=== PATIENT | male | born 1980 | race African-American/Black ===

== ENCOUNTER 2016-06-15 09:49 | Emergency (ER) | payer SELFPAY ==
[~2016-06-15] VITALS: Ht 180.3 cm; Wt 123.9 kg
[~2016-06-15 09:49] MED LIST: ATARAX,VISTARIL50 MG PO; NOHOMEMEDS; PATANOL OP100 DROP/5 BOTH EYES; PEPCID20 MG PO; PREDNISONE20 MG PO
[2016-06-15 11:02] LABS: EOSINOPHIL (%) 0 % (0-5); HEMATOCRIT 45.4 % (38.0-50.0); IMMATURE GRANULOCYTE (%) 0.2 % (0.0-0.7); IMMATURE GRANULOCYTE COUNT 0.3 K/uL; LYMPHOCYTE COUNT 2.5 K/uL (1.0-2.8); MCH 26.9 PG (29.0-34.0); MCHC 34.1 G/DL (30.0-36.0); MCV 78.8 FL (86-99); MEAN PLAT.VOLUME 10.6 uM^3 (9.0-12.4); MONOCYTE (%) 10.8 % (3-12); MONOCYTE COUNT 1.5 K/uL (0-0.8); NEUTROPHIL (%) 71.2 % (45-76); NEUTROPHIL COUNT 9.9 K/uL (1.8-6.4); PLATELET COUNT 258 K/uL (156-360); RBC DIS.WIDTH-CV 14.3 % (11.8-14.6); RBC DIS.WIDTH-SD 40.7 % (39-53); RED BLOOD COUNT 5.76 M/uL (4.00-5.50); WHITE BLOOD COUNT 13.9 K/uL (4.1-10.2)
[2016-06-15 11:12] LABS: CHLORIDE 105 mEq/L (99-109); SODIUM 139 mEq/L (136-147)
[2016-06-15 11:13] LABS: GLUCOSE 67 mg/dL (70-99)
[2016-06-15 11:15] LABS: ANION GAP 13 MEQ/L (2-14)
[2016-06-15 11:17] LABS: GFR ESTIMATE (CALCULATED) > 59 mL/min/
[2016-06-15 11:18] LABS: UREA NITROGEN (BUN) 13 mg/dL (9-23)
[2016-06-15] MEDS ORDERED: PERCOCET 5/31 TABLET PO (13:08)
[2016-06-15] MEDS ORDERED: CLINDAMYCIN HC300 MG PO (13:08)
[2016-06-15 13:26] VITALS: BP 132/85
== END 2016-06-15 13:27 | disposition home or self-care (01) ==
LOC: EME 09:49
PROVIDERS: Physician Assistant
PROC: 0H98X0Z Drainage of Buttock Skin with Drainage Device, External Approach (ICD-10-PCS; principal; 2016-06-15)
DX: L02.31 Cutaneous abscess of buttock (principal); F17.200 Nicotine dependence, unspecified, uncomplicated
CPT/HCPCS: 72193; 80048; 85025; 87040; 87070; 87075; 87076; 87205; 99281; 99284; J3010; J7120

== ENCOUNTER 2017-03-17 13:47 | Emergency (ER) | payer SELFPAY ==
[~2017-03-17] VITALS: Ht 180.3 cm; Wt 122.1 kg
[~2017-03-17 13:47] MED LIST changes: +CLINDAMYCIN HC300 MG PO; +PERCOCET 5/31 TABLET PO
[2017-03-17] MEDS ORDERED: ZITHROMAX Z-PA250 MG PO (17:19)
[2017-03-17] MEDS ORDERED: PREDNISONE20 MG PO (17:19)
[2017-03-17] MEDS ORDERED: PROVENTIL HFA6.7 GM IH (17:19)
[2017-03-17 17:32] VITALS: BP 125/86
== END 2017-03-17 17:45 | disposition home or self-care (01) ==
LOC: EME 13:47
DX: J06.9 Acute upper respiratory infection, unspecified (principal); F17.200 Nicotine dependence, unspecified, uncomplicated
CPT/HCPCS: 99281; 99282